=== PATIENT | male | born 1980 | race Caucasian/White ===

== ENCOUNTER 2018-08-31 16:58 | Emergency (ER) | payer SELFPAY ==
[2018-08-31 17:13] VITALS: BMI 29.2
--- NOTE | 2018-08-31 17:13 | PDOC ---
Rapid Medical Evaluation Chief Complaint: Pain Time Seen by Provider: 08/31/18 17:11 Medical Evaluation: 08/31/18 17:11 I have performed a brief in person evaluation at triage on this patient. CC: Injury HPI: Pt fell 16 feet from a ladder NURSING ADMIN and was ambulatory to triage. PE: Skin: clear Chest: pain upon palpation Lungs: clear Heart: RRR Abd: soft, tender. MS: Moves all extremities without difficulty Neuro: Alert and oriented Psych: Appropriate affect Pt was placed in a C collar and supine and set to back immediately. Pt will proceed to the main ED for further evaluation. Discharge Disposition - Diagnosis Accident Qualifiers: Encounter type: initial encounter Qualified Code(s): X58.XXXA - Exposure to other specified factors, initial encounter - Referrals - Patient Instructions - Post Discharge Activity
[2018-08-31 17:52] LABS: HEMATOCRIT 44.7 % (35.4-49); HEMOGLOBIN 15.3 GM/dL (11.7-16.9); MCH 30.5 pg (25.7-33.7); MCHC 34.2 g/dl (32.0-35.9); MEAN CELL VOLUME 89.2 fl (80-96); MEAN PLT VOLUME 8.3 fl (7.5-11.1); PLATELET COUNT 237 K/MM3 (134-434); RBC 5.01 M/mm3 (4.00-5.60); RDW 13.4 % (11.9-15.9); WHITE BLOOD COUNT 10.3 K/mm3 (4.0-10.0)
[2018-08-31] MEDS ORDERED: fentaNYL CITRATE 250 MCG/5 ML VIAL IVPUSH ONE (17:54)
[2018-08-31] MEDS ORDERED: fentaNYL CITRATE 250 MCG/5 ML VIAL ONE (17:58)
[2018-08-31 18:02] LABS: INR 0.97 (0.83-1.09); PROTHROMBIN TIME (PATIENT) 11.5 SEC (9.7-13.0)
[2018-08-31] MEDS ORDERED: morphine CARPU-JECT 4 MG/1 ML DISP.SYRIN IVPUSH ONE ×2 (18:03→22:16)
[2018-08-31 18:05] LABS: ACTIVATED PTT 29.3 SECONDS (25.2-36.5)
--- NOTE | 2018-08-31 18:13 | PDOC ---
Documentation entered by Yanely Cruz SCRIBE, acting as scribe for Samuel Morris MD. Samuel Morris MD: This documentation has been prepared by the Anthony smith Amanda, SCRIBE, under my direction and personally reviewed by me in its entirety. I confirm that the documentation accurately reflects all work, treatment, procedures, and medical decision making performed by me. Attending Attestation - Resident Resident Name: Duc Patel - ED Attending Attestation I have performed the following: I have examined & evaluated the patient, The case was reviewed & discussed with the resident, I agree w/resident's findings & plan, Exceptions are as noted - HPI HPI: 08/31/18 17:46 The patient is a 37 year old male, with no significant past medical history, who presents to the emergency department for evaluation after fall from a ladder at height of 16 feet today at 3PM. The patient states he fell onto his right side hitting his right shoulder and right head. He states he was able to ambulate and developed SOB and significant decreased ROM to his upper extremities. He reports pain to his neck and back. He denies LOC. He reports a headache at this time. The patient denies chest pain, shortness of breath, and dizziness. The patient denies fever, chills, nausea, vomit, diarrhea and constipation. The patient denies dysuria, frequency, urgency and hematuria. Allergies:NKDA - Physicial Exam PE: 08/31/18 17:55 Vitals: Triage vital signs reviewed General Appearance: No acute distress, well nourished, well developed Head: No visible head trauma. Pt complaining of head pain. Eyes: Pupils equal reactive round, extraocular movement intact Neck: (+) C collar in place. Supple; No nuchal rigidity Chest Wall: Nontender Cardiac: Regular rate and rhythm, no murmurs, no rubs, no gallops Lungs: (+) tachypneic. Clear to auscultation bilateral, good air movement bilaterally Abdomen: (+) RUQ tenderness to palpation. Soft, nondistended, normal bowel sounds, Extremities: (+) decreased ROM to bilateral upper extremities. 5/5 MS. Able to straight leg raise bilaterally. no cyanosis, clubbing, or edema MSL: (+) C-spine, T-spine tenderness. no step offs appreciated. No obvious deformities or bruising. Skin: Warm and dry, no rashes or lesions, no rash, no petechiae Neuro: AOX3; Cranial Nerves 2-12 grossly intact, Strength intact to all extremities, Sensation intact to all extremities Psych: Normal mood, normal affect - Medical Decision Making 08/31/18 18:59 Patient with fall from significant height CT had cervical spine chest abdomen pelvis with IV contrast ordered pain medications given labs pending final CT reads pending Dr. Johnson to follow up CT labs and reasses
[2018-08-31 18:29] LABS: ALBUMIN 3.9 g/dl (3.4-5.0); ALK PHOS 105 U/L (45-117); ANION GAP 6 MMOL/L (8-16); BILIRUBIN,TOTAL 0.3 mg/dL (0.2-1); BLOOD UREA NITROGEN 23 mg/dL (7-18); CALCIUM 8.7 mg/dL (8.5-10.1); CHLORIDE 106 mmol/L (98-107); CO2 27 mmol/L (21-32); CREATININE 0.8 mg/dL (0.55-1.3); GLUCOSE,RANDOM 111 mg/dL (74-106); SGPT/ALT 24 U/L (13-61); SODIUM 139 mmol/L (136-145)
[2018-08-31 18:30] LABS: POTASSIUM 4.3 mmol/L (3.5-5.1); SGOT/AST 22 U/L (15-37)
[2018-08-31] MEDS ORDERED: SODIUM CHLORIDE 1,000 ML IV STA (18:38)
--- NOTE | 2018-08-31 18:38 | PDOC ---
History of Present Illness - General Chief Complaint: Pain Stated Complaint: FALL Time Seen by Provider: 08/31/18 17:11 History Source: Patient Exam Limitations: No Limitations - History of Present Illness Initial Comments: 08/31/18 18:20 37 yo male no sig pmh presents to the ED after a 16 foot fall. Airway intact, breath sounds bilaterally, circulation 2+ in all ext. Vitals WNL, GCS 15. Pt exposed completely and rolled, admits to C and T spine tenderness. Pt moving all extremities. FAST negative. Pelvis stable. Pt states he fell off a ladder around 3 pm today, able to get up on his own and ambulate, rested for a couple of hours but due to excessive/progressing headache , neck pain, right shoulder pain with numbness and weakness into the upper right ext, decided to come to the ER. Pt denies changes in vision or speech, N/V , incontinence, sensory or strength changes in the lower ext or sensory deficits in the groin. Pt admits to midline C and T spine tenderness Past History - Past Medical History Allergies/Adverse Reactions: Allergies Allergy/AdvReac Type Severity Reaction Status Date / Time No Known Allergies Allergy Verified 08/31/18 17:11 Home Medications: Ambulatory Orders NK [No Known Home Medication] 08/31/18 COPD: No - Suicide/Smoking/Psychosocial Hx Smoking History: Never smoked Review of Systems - Review of Systems HEENTM: No: Blurred Vision, Double Vision, Ear Discharge Respiratory: No: Shortness of Breath Cardiac (ROS): No: Chest Pain ABD/GI: Yes: Other (RUQ abdominal pain). No: Constipated, Diarrhea, Nausea, Vomiting : No: Discharge, Hematuria, Incontinence Musculoskeletal: Yes: Back Pain, Muscle Weakness, Neck Pain Neurological: Yes: Headache, Numbness, Paresthesia, Weakness *Physical Exam - Vital Signs Last Vital Signs Temp Pulse Resp BP Pulse Ox 98.0 F 70 12 120/80 92 L 08/31/18 17:11 08/31/18 17:11 08/31/18 17:11 08/31/18 17:11 08/31/18 17:11 - Physical Exam General Appearance: Yes: Nourished, Appropriately Dressed, Apparent Distress ( pt in C collar and admits to excessive pain) HEENT: positive: EOMI, PATO, Normal Voice, TMs Normal, Hearing Grossly Normal. negative: Sinus Tenderness Neck: positive: Tender (c spine and t spine), Supple, Tender midline. negative : Rigid Respiratory/Chest: positive: Lungs Clear, Normal Breath Sounds. negative: Respiratory Distress, Accessory Muscle Use, Rapid RR, Crackles, Rales, Rhonchi, Stridor, Wheezing Cardiovascular: positive: Regular Rhythm, Regular Rate, S1, S2. negative: Edema , JVD, Murmur Vascular Pulses: Dorsalis-Pedis (R): 4+, Doralis-Pedis (L): 4+ Comments:: 08/31/18 20:31 radial pulses 4+ bilaterally Gastrointestinal/Abdominal: positive: Normal Bowel Sounds, Tender (RUQ), Flat, Soft. negative: Pulsatile Mass, Protuberent, Distended, Guarding, Rebound Musculoskeletal: negative: CVA Tenderness Extremity: positive: Normal Inspection, Tender (right shoulder), Pelvis Stable Integumentary: positive: Normal Color, Dry, Warm. negative: Cyanotic, Erythema , Cold, Clammy Neurologic: positive: nut chopper II-XII NML intact, Fully Oriented, Alert, Normal Mood/ Affect, Normal Response, Motor Strength 5/5 (after reassesment ). negative: Facial Droop, Sensory Deficit, Finger to Nose (normal), Confused, Disoriented ED Treatment Course - LABORATORY CBC & Chemistry Diagram: 08/31/18 17:20 08/31/18 17:20 - ADDITIONAL ORDERS Additional order review: Laboratory Results 08/31/18 17:20 PT with INR 11.50 INR 0.97 PTT (Actin FS) 29.3 08/31/18 17:20 RBC 5.01 MCV 89.2 MCHC 34.2 RDW 13.4 MPV 8.3 - RADIOLOGY Radiology Studies Ordered: Category Date Time Status ABDOMEN & PELVIS CT WITH CONTR [CT] Stat CT Scan 08/31/18 17:[address] W/O CONTR [CT] Stat CT Scan 08/31/18 17:[address] WITH CONTRAST [CT] Stat CT Scan 08/31/18 17:[address] WITHOUT CONTRAST [CT] Stat CT Scan 08/31/18 17:17 Ordered - Medications Given in the ED: ED Medications Discontinued Medications Generic Name Dose Route Start Last Admin Trade Name Freq PRN Reason Stop Dose Admin Fentanyl 250 mcg 08/31/18 17:54 08/31/18 18:12 Sublimaze Injection - IVPUSH 08/31/18 17:55 250 mcg ONCE ONE Administration Medical Decision Making - Medical Decision Making 37 yo male no sig pmh presents to the ED after a 16 foot fall. Airway intact, breath sounds bilaterally, circulation 2+ in all ext. Vitals WNL, GCS 15. Pt exposed completely and rolled, admits to C and T spine tenderness. Pt moving all extremities. FAST negative. Pelvis stable. Pt states he fell off a ladder around 3 pm today, able to get up on his own and ambulate, rested for a couple of hours but due to excessive/progressing headache , neck pain, right shoulder pain with numbness and weakness into the upper right ext, decided to come to the ER. Pt denies changes in vision or speech, N/V , incontinence, sensory or strength changes in the lower ext or sensory deficits in the groin. Pt admits to midline C and T spine tenderness PE showed weakness in R plain goods hemmer strength initially Trauma labs sent Pt deemed to be stable enough for Montes scan (vitals stable, C collar in place) due to mechanism Vitals reassessed, on RA pt saturation ranges between 98-100% NAD Pt given Fentanyl for pain with improvement. With pain resolved, plain goods hemmer strength on right returns to normal however pt continues to complain of numbness/ tingling into right hand Head CT neg for fracture or bleed C spine neg for fractures or dislocations labs and imaging pending Pt s/o to night team for further care *DC/Admit/Observation/Transfer Diagnosis at time of Disposition: Accident Qualifiers: Encounter type: initial encounter Qualified Code(s): X58.XXXA - Exposure to other specified factors, initial encounter - Referrals - Patient Instructions - Post Discharge Activity
[2018-08-31] MEDS ORDERED: CYCLOBENZAPRINE HCL 10 MG TABLET (FP) PO ONE (18:40)
[2018-08-31] MEDS ORDERED: morphine SULFATE 4 MG/ML VIAL ONE ×2 (18:58→22:17)
[2018-08-31] MEDS ORDERED: CYCLOBENZAPRINE HCL 10 MG TABLET (FP) ONE (18:59)
--- NOTE | 2018-08-31 19:29 | PDOC ---
*Physical Exam - Vital Signs Last Vital Signs Temp Pulse Resp BP Pulse Ox 98.0 F 70 12 120/80 92 L 08/31/18 17:11 08/31/18 17:11 08/31/18 17:11 08/31/18 17:11 08/31/18 17:11 - Physical Exam Comments: 08/31/18 22:20 VSS Awake, verbal, A&O x3 C-spine precautions in place Mild epigastric abdominal TTP ED Treatment Course - LABORATORY CBC & Chemistry Diagram: 08/31/18 17:20 08/31/18 17:20 - ADDITIONAL ORDERS Additional order review: Laboratory Results 08/31/18 08/31/18 08/31/18 18:16 17:20 17:20 PT with INR INR PTT (Actin FS) Sodium 139 Potassium 4.3 Chloride 106 Carbon Dioxide 27 Anion Gap 6 L BUN 23 H Creatinine 0.8 Creat Clearance w eGFR 110.01 Random Glucose 111 H Calcium 8.7 Total Bilirubin 0.3 AST 22 ALT 24 Alkaline Phosphatase 105 Creatine Kinase 181 Total Protein 7.0 Albumin 3.9 Blood Type O POSITIVE Antibody Screen Negative 08/31/18 17:20 PT with INR 11.50 INR 0.97 PTT (Actin FS) 29.3 Sodium Potassium Chloride Carbon Dioxide Anion Gap BUN Creatinine Creat Clearance w eGFR Random Glucose Calcium Total Bilirubin AST ALT Alkaline Phosphatase Creatine Kinase Total Protein Albumin Blood Type Antibody Screen 08/31/18 17:20 RBC 5.01 MCV 89.2 MCHC 34.2 RDW 13.4 MPV 8.3 - Medications Given in the ED: ED Medications Discontinued Medications Generic Name Dose Route Start Last Admin Trade Name Freq PRN Reason Stop Dose Admin Cyclobenzaprine HCl 10 mg 08/31/18 18:40 08/31/18 19:03 Flexeril - PO 08/31/18 18:41 Not Given ONCE ONE Fentanyl 250 mcg 08/31/18 17:54 08/31/18 18:12 Sublimaze Injection - IVPUSH 08/31/18 17:55 250 mcg ONCE ONE Administration Morphine Sulfate 4 mg 08/31/18 18:03 08/31/18 19:03 Morphine Injection - IVPUSH 08/31/18 18:04 Not Given ONCE ONE Medical Decision Making - Medical Decision Making 08/31/18 19:28 Patient signed out by Dr. Patel (Resident) and Dr. Morris (Attending) 37 year old male presents after a fall from a ladder @ 16 feet this afternoon. Ambulatory post fall, c/o headache and pain in his RUE, back and neck. C-spine precautions in place. Awaiting CT Head, C-spine, CTAP. 08/31/18 20:[address]/C-spine negative - will obtain MRI as patient continues to c/o cervical spine pain Case d/w Dr. Montiel (Radiology) two hypodense areas w/low attentuation on liver : (1) 1x1 cm in medial L lobe and 1x1 cm in R lobe - ? hemangioma vs. contusion/ acute bleed Patient requires trauma evaluation 08/31/18 20:18 Patient assessed @ bedside Repeat VS @ bedside HR 65, BP 112/74, SpO2 98% on RA 08/31/18 21:52 Case d/w Dr. Pool (General Surgery) recommends transfer Case d/w Dr. Reynolds ([facility] ED) - accepted to [facility]; states transfer w/o MRI read 08/31/18 21:54 Patient consented for transfer VSS 08/31/18 22:20 Patient transferred to [facility] *DC/Admit/Observation/Transfer Diagnosis at time of Disposition: Accident Qualifiers: Encounter type: initial encounter Qualified Code(s): X58.XXXA - Exposure to other specified factors, initial encounter - Discharge Dispostion Disposition: TRANSFER ACUTE CARE/OTHER HOSP - Referrals - Patient Instructions - Post Discharge Activity
[2018-08-31 21:11] LABS: PH,URINE 5.5 (5.0-8.0); URINE APPEARANCE CLEAR; URINE BILIRUBIN NEGATIVE (NEGATIVE); URINE COLOR YELLOW; URINE GLUCOSE (UA) NEGATIVE (NEGATIVE); URINE KETONE NEGATIVE (NEGATIVE); URINE LEUK ESTERASE NEGATIVE (NEGATIVE); URINE NITRITE NEGATIVE (NEGATIVE); URINE PROTEIN NEGATIVE (NEGATIVE)
--- NOTE | 2018-08-31 22:05 | PDOC ---
*Physical Exam - Vital Signs Last Vital Signs Temp Pulse Resp BP Pulse Ox 98.0 F 60 20 121/81 97 08/31/18 17:11 08/31/18 20:33 08/31/18 20:33 08/31/18 20:33 08/31/18 20:33 ED Treatment Course - LABORATORY CBC & Chemistry Diagram: 08/31/18 17:20 08/31/18 17:20 - ADDITIONAL ORDERS Additional order review: Laboratory Results 08/31/18 08/31/18 08/31/18 20:31 20:25 18:16 PT with INR INR PTT (Actin FS) Sodium Potassium Chloride Carbon Dioxide Anion Gap BUN Creatinine Creat Clearance w eGFR Random Glucose Calcium Total Bilirubin AST ALT Alkaline Phosphatase Creatine Kinase Creatine Kinase Index CK-MB (CK-2) Total Protein Albumin Urine Color Yellow Urine Appearance Clear Urine pH 5.5 Ur Specific [place] 1.017 Urine Protein Negative Urine Glucose (UA) Negative Urine Ketones Negative Urine Blood Negative Urine Nitrite Negative Urine Bilirubin Negative Urine Urobilinogen 1.0 Ur Leukocyte Esterase Negative Alcohol, Quantitative Blood Type O POSITIVE O POSITIVE Antibody Screen Negative 08/31/18 08/31/18 08/31/18 18:16 17:20 17:20 PT with INR INR PTT (Actin FS) Sodium Potassium Chloride Carbon Dioxide Anion Gap BUN Creatinine Creat Clearance w eGFR Random Glucose Calcium Total Bilirubin AST ALT Alkaline Phosphatase Creatine Kinase 181 Creatine Kinase Index 1.1 CK-MB (CK-2) 2.0 Total Protein Albumin Urine Color Urine Appearance Urine pH Ur Specific Monroe Urine Protein Urine Glucose (UA) Urine Ketones Urine Blood Urine Nitrite Urine Bilirubin Urine Urobilinogen Ur Leukocyte Esterase Alcohol, Quantitative < 3.0 Blood Type O POSITIVE Antibody Screen Negative 08/31/18 08/31/18 17:20 17:20 PT with INR 11.50 INR 0.97 PTT (Actin FS) 29.3 Sodium 139 Potassium 4.3 Chloride 106 Carbon Dioxide 27 Anion Gap 6 L BUN 23 H Creatinine 0.8 Creat Clearance w eGFR 110.01 Random Glucose 111 H Calcium 8.7 Total Bilirubin 0.3 AST 22 ALT 24 Alkaline Phosphatase 105 Creatine Kinase Creatine Kinase Index CK-MB (CK-2) Total Protein 7.0 Albumin 3.9 Urine Color Urine Appearance Urine pH Ur Specific Monroe Urine Protein Urine Glucose (UA) Urine Ketones Urine Blood Urine Nitrite Urine Bilirubin Urine Urobilinogen Ur Leukocyte Esterase Alcohol, Quantitative Blood Type Antibody Screen 08/31/18 17:20 RBC 5.01 MCV 89.2 MCHC 34.2 RDW 13.4 MPV 8.3 - Medications Given in the ED: ED Medications Discontinued Medications Generic Name Dose Route Start Last Admin Trade Name Gloria PRN Reason Stop Dose Admin Cyclobenzaprine HCl 10 mg 08/31/18 18:40 08/31/18 19:03 Flexeril - PO 08/31/18 18:41 Not Given ONCE ONE Fentanyl 250 mcg 08/31/18 17:54 08/31/18 18:12 Sublimaze Injection - IVPUSH 08/31/18 17:55 250 mcg ONCE ONE Administration Sodium Chloride 1,000 mls @ 1,000 mls/hr 08/31/18 18:38 08/31/18 19:03 Normal Saline - IV 08/31/18 19:37 1,000 mls/hr ASDIR STA Administration Morphine Sulfate 4 mg 08/31/18 18:03 08/31/18 19:03 Morphine Injection - IVPUSH 08/31/18 18:04 Not Given ONCE ONE Medical Decision Making - Medical Decision Making 08/31/18 22:03 37-year-old male signed out from day shift pending CT scan results MRI of the cervical spine has also been ordered due to persistent pain despite negative CT scan CT abdomen and pelvis shows possible areas of hepatic contusion Case discussed briefly with Dr. MELENDEZ covering general surgery who recommends transfer to a trauma center Patient accepted at [facility] by Dr. Reynolds Cervical precautions remain in place *DC/Admit/Observation/Transfer Diagnosis at time of Disposition: Accident Qualifiers: Encounter type: initial encounter Qualified Code(s): X58.XXXA - Exposure to other specified factors, initial encounter - Referrals - Patient Instructions - Post Discharge Activity
[2018-08-31 22:14] VITALS: TEMP 97.8
[2018-08-31 22:48] VITALS: BP 116/81; PULSE 62
== END 2018-08-31 23:00 | disposition short-term general hospital (02) ==
LOC: JER 16:58
PROC: 3E0337Z Introduction of Electrolytic and Water Balance Substance into Peripheral Vein, Percutaneous Approach (ICD-10-PCS; principal; 2018-08-31)
PROC: 3E033NZ Introduction of Analgesics, Hypnotics, Sedatives into Peripheral Vein, Percutaneous Approach (ICD-10-PCS; 2018-08-31)
PROC: 3E033NZ Introduction of Analgesics, Hypnotics, Sedatives into Peripheral Vein, Percutaneous Approach (ICD-10-PCS; 2018-08-31)
DX: T14.8XXA Other injury of unspecified body region, initial encounter (principal); W11.XXXA Fall on and from ladder, initial encounter; Y93.89 Activity, other specified; Y92.69 Other specified industrial and construction area as the place of occurrence of the external cause; Y99.0 Civilian activity done for income or pay
CPT/HCPCS: 36415; 70450-TC; 71260-TC; 72125-TC; 72141-TC; 74177-TC; 80053; 80307; 81003; 82550; 82553; 85027; 85610; 85730; 86850; 86900; 86901; 99285-25; J7030